=== PATIENT | male | born 1995 | race Asian ===

== ENCOUNTER 2021-05-14 13:00 | Emergency (ER) | payer MEDICAID ==
[~2021-05-14] VITALS: Ht 162.6 cm; Wt 68.5 kg
[2021-05-14] MEDS ORDERED: keppra (13:12)
[2021-05-14] MEDS ORDERED: KETOROLAC 60MG/2ML VIAL IM STA (14:46)
[2021-05-14 14:55] VITALS: BP 116/80
[2021-05-14] MEDS ORDERED: BACITRACIN ZINC OINT UDPKT TOP NR (16:45)
[2021-05-14] MEDS ORDERED: NAPR-681 PO (17:00)
[2021-05-14] MEDS ORDERED: HYDR-4001 PO (17:00)
== END 2021-05-14 17:34 | disposition home or self-care (01) ==
LOC: ER 13:23
DX: S42.002A Fracture of unspecified part of left clavicle, initial encounter for closed fracture (principal); S00.81XA Abrasion of other part of head, initial encounter; S40.212A Abrasion of left shoulder, initial encounter; S70.02XA Contusion of left hip, initial encounter; M25.512 Pain in left shoulder; F20.9 Schizophrenia, unspecified; Y04.0XXA Assault by unarmed brawl or fight, initial encounter; Y93.89 Activity, other specified; Y92.89 Other specified places as the place of occurrence of the external cause; Y99.8 Other external cause status
CPT/HCPCS: 73000; 73030; 96372; 99284; J1885; A4565; L3670